=== PATIENT | female | born 1965 | race Caucasian/White ===

== ENCOUNTER → 2018-06-22 08:47 | Day surgery (SDC) | payer BC ==
[~2018-06-22 08:47] MED LIST: Atracurium* 10 MG/ML 10 ML VIAL ONE; Buffered Lidocaine 0.9% SYRIN* 5 ML/SYR SYRINGE INTRADERM ONE; Dexamethasone IV* 4 MG/ML 1 ML (4 MG) IV SLOW PU ONE; Dexamethasone IV* 4 MG/ML 1 ML (4 MG) ONE; DiMENhydriNATE IV* 50 MG/ML VIAL IV PUSH PRN; Famotidine IV* 10 MG/ML 2 ML (20 mg) IV ONE; Famotidine IV* 10 MG/ML 2 ML (20 mg) ONE; Glycopyrrolate IV* 0.2 MG/ML 1 ML VIAL ONE; KETAMINE HCL* 50 MG/ML 10 ML VIAL ONE; Lactated Ringers 1000 ML Bag* 1,000 ML IV SCH; Levalbuterol 0.63MG/3ML NEB* UNIT OF USE INH ONE; Levalbuterol 0.63MG/3ML NEB* UNIT OF USE INH PRN; Lidocaine 2% PF * 5 ML VIAL ONE; Metoprolol Tartrate IV* 1 MG/ML 5 ML VIAL ONE; Midazolam* 1 MG/ML 5 ML VIAL (5 MG) ONE; Naloxone* 0.4 MG/ML 1 ML VIAL IV PRN; Ondansetron ODT TAB* 4 MG ONE; Ondansetron TAB* 4 MG PO ONE; PROCHLORPERAZINE INJ 5 MG/ML 2 ML VIAL IV PRN; PROCHLORPERAZINE INJ 5 MG/ML 2 ML VIAL ONE; Propofol* 10 MG/ML 20 ML BTL ONE; fentaNYL* 50 MCG/ML 2 ML VIAL (100 MCG VIAL) IV PRN; fentaNYL* 50 MCG/ML 2 ML VIAL (100 MCG VIAL) ONE; hydrALAZINE IV* 20 MG/ML VIAL ONE; oxyCODONE/Acetamin 5/325 MG* TAB PO PRN
[2018-06-22 14:49] VITALS: BP 115/73
--- NOTE | 2018-06-22 17:25 | PRO ---
BRONCHOSCOPY REPORT: DATE OF PROCEDURE: 06/22/18 PROCEDURE PERFORMED: Bronchoscopy with endobronchial ultrasound-guided fine- needle aspiration of mediastinal hilar nodes. PREPROCEDURAL DIAGNOSIS: Lung cancer diagnosed after CT-guided biopsy. ANESTHESIA: General anesthesia. ANESTHESIOLOGIST: Dr. Martinez. DESCRIPTION OF PROCEDURE: Informed consent was obtained from the patient prior to the procedure after all the risks and benefits were thoroughly explained. Appropriate time-out was performed and agreed on by attending staff. A flexible Olympus bronchoscope was inserted through ET tube for airway inspection. No endobronchial lesions were noted. Bronchoscope was then withdrawn. EBUS bronchoscope was inserted. Lymph nodes were not significantly enlarged. Left- sided lymph nodes measured 4mm, L4 was accessed with 3 passes. Rapid on-site evaluation revealed no lymphatic tissue. Station 7 sampled with 5 passes. Station R4 was then accessed with one pass. Rapid on-site evaluation revealed no lymphatic tissue. Procedure was terminated. The patient was extubated and seen in Recovery in optimal condition. The patient tolerated the procedure well. [id number]/[facility] #: [id number] [facility]
== END | disposition home or self-care (01) ==
LOC: OR 08:47
PROVIDERS: ATTEND Internal Medicine
DX: C34.90 Malignant neoplasm of unspecified part of unspecified bronchus or lung (principal); I10 Essential (primary) hypertension
CPT/HCPCS: 88172; 88173; 88177; 88305; A9270-GY; J0360; J0780; J1100; J2250; J2704; J3010; J3490

== ENCOUNTER 2019-08-13 08:33 | Emergency (ER) | payer BC ==
[2019-08-13] MEDS ORDERED: Albuterol/Ipratropium NEB.SOL* Albuterol 2.5 MG/Ipratropium 0.5 MG 3 ML INH ONE (09:29)
[2019-08-13] MEDS ORDERED: Acetaminophen TAB* 325 MG PO ONE (09:29)
[2019-08-13] MEDS ORDERED: GuaiFENesin DM sugar free 100mg/10mg 5 ML UDC PO ONE (09:29)
[2019-08-13 09:49] LABS: Influenza A Molecular Negative (Negative); Influenza B Molecular Negative (Negative)
[2019-08-13] MEDS ORDERED: Dexamethasone IV* 4 MG/ML 1 ML (4 MG) IV SLOW PU ONE (10:36)
[2019-08-13] MEDS ORDERED: Azithromycin TAB* 250 MG PO ONE (10:36)
--- NOTE | 2019-08-13 10:44 | ED ---
Respiratory - HPI Summary HPI Summary: This patient is a 54-year-old female with a history of upper right lobe pneumonia and status post lobectomy presenting to the ED with cough, congestion , scratchy throat, fever, wheezing, headache over the past 1 week. She states started with a scratchy throat and now is endorsing mostly chest congestion. She denies any shortness of breath. She has been taking her Symbicort twice daily without much relief. She is also been taking Tylenol and over-the- counter cough medication without relief. She has not been on steroids or nebulizer treatments. Denies any nausea, vomiting, diarrhea. She denies any sick contacts. She states she is mainly homebound and does not go out often. Endorses intermittent sweats and chills, but denies any subjective fevers. - History of Current Complaint Chief Complaint: EDFluSymptoms Stated Complaint: FLU SYMPTOMS PER PT Time Seen by Provider: 08/13/19 09:18 Hx Obtained From: Patient Onset/Duration: Sudden Onset Timing: Constant Initial Severity: Moderate Current Severity: Moderate Pain Intensity: 4 Character: Cough (Productive) Sputum Amount: Scant Sputum Color: White Aggravating Factor(s): URI, Deep Breaths Alleviating Factor(s): Nothing Associated Signs and Symptoms: SOB, URI, Sinus Infection, Nasal Congestion, Sinus Discomfort - Allergy/Home Medications Allergies/Adverse Reactions: Allergies Allergy/AdvReac Type Severity Reaction Status Date / Time No Known Allergies Allergy Verified 08/13/19 08:37 PMH/Surg Hx/FS Hx/Imm Hx Previously Healthy: Yes Endocrine/Hematology History: Denies: Hx Diabetes Cardiovascular History: Reports: Hx Hypertension - ON MEDICATION FOR Denies: Hx Pacemaker/ICD, Other Cardiovascular Problems/Disorders Respiratory History: Reports: Hx Asthma - ROUTINE INHALER AND PRN INHALER, Other Respiratory Problems/Disorders - HX OF LUNG CANCER. HAD RIGHT UPPER LOBECTOMY IN 08/2018. GI History: Reports: Hx Gastroesophageal Reflux Disease - NO MEDICATION FOR Denies: Other GI Disorders History: Reports: Hx Kidney Stones - HX OF Musculoskeletal History: Reports: Hx Arthritis - THROUGHOUT, Hx Tendonitis, Other Musculoskeletal History - GER CARPAL TUNNEL Sensory History: Reports: Hx Contacts or Glasses - INSTRUCTS GIVEN Denies: Hx Hearing Aid Opthamlomology History: Reports: Hx Contacts or Glasses - INSTRUCTS GIVEN Neurological History: Reports: Hx Headaches, Hx Migraine - 1 Q 2-3 MONTHS-TX WITH EXCEDRIN MIGRAINE Denies: Other Neuro Impairments/Disorders Psychiatric History: Reports: Hx Anxiety - NO MEDICATION FOR- STATES RELATED TO CURRENT DIAGNOSIS Denies: Hx Panic Disorder - Cancer History Hx Chemotherapy: No Hx Radiation Therapy: No - Surgical History Surgery Procedure, Year, and Place: C-SECT 1992.,WISDOM TEETH 1984. 2018-LOCAL ANESTHESIA FOR BIOPSY. BRONCHOSCOPY. COLONOSCOPY Hx Anesthesia Reactions: Yes - SLOW TO COME OUT OF ANESTHESIA AFTER BRONCHOSCOPY AND COLONOSCOPY Infectious Disease History: No Infectious Disease History: Denies: Traveled Outside the [place] in Last 30 Days - Social History Occupation: Employed Full-time Lives: With Family Alcohol Use: Rare Hx Substance Use: No Substance Use Type: Reports: None Smoking Status (MU): Never Smoked Tobacco Have You Smoked in the Last Year: No Review of Systems Positive: Fever, Chills, Fatigue Negative: Blurred Vision, Diplopia Positive: Sore Throat, Nasal Discharge. Negative: Ear Ache Negative: Chest Pain Positive: Shortness Of Breath, Cough Negative: Abdominal Pain, Vomiting, Diarrhea, Nausea Negative: Arthralgia, Myalgia Positive: Headache All Other Systems Reviewed And Are Negative: Yes Physical Exam Triage Information Reviewed: Yes Vital Signs On Initial Exam: Initial Vitals Temp Pulse Resp BP Pulse Ox 99.2 F 108 19 135/109 96 08/13/19 08:35 08/13/19 08:35 08/13/19 08:35 08/13/19 08:35 08/13/19 08:35 Vital Signs Reviewed: Yes Appearance: Positive: Ill-Appearing Skin: Positive: Warm, Skin Color Reflects Adequate Perfusion Head/Face: Positive: Normal Head/Face Inspection Eyes: Positive: EOMI, TINY, Conjunctiva Clear ENT: Positive: Nasal congestion. Negative: Nasal drainage, Tonsillar swelling, Tonsillar exudate, Hoarse voice, Dental tenderness, Sinus tenderness Neck: Positive: Supple, Nontender, No Lymphadenopathy Respiratory/Lung Sounds: Positive: Clear to Auscultation, Breath Sounds Present Cardiovascular: Positive: RRR, Pulses are Symmetrical in both Upper and Lower Extremities. Negative: Leg Edema Left, Leg Edema Right Musculoskeletal: Positive: Normal, Strength/ROM Intact Neurological: Positive: Speech Normal Psychiatric: Positive: Affect/Mood Appropriate Procedures - Sedation Patient Received Moderate/Deep Sedation with Procedure: No Diagnostics - Vital Signs Vital Signs Temp Pulse Resp BP Pulse Ox 02/09/20 09:37 16 08/13/19 08:35 99.2 F 108 19 135/109 96 - Laboratory Lab Results: Lab Results 08/13/19 Range/Units 09:21 Influenza A (Rapid) Negative (Negative) Influenza B (Rapid) Negative (Negative) Lab Statement: Any lab studies that have been ordered have been reviewed, and results considered in the medical decision making process. Disposition - Course Course Of Treatment: This patient's evaluated for cough, congestion, and subjective fevers. Patient lungs CTA. RRR. Patient appears ill. Given DUO-NEB without improvement. CXR and flu obtained. Both negative. Pt also given robitussin and tylenol with some improvement. Discussed with patient treatment options. As pt appears is somewhat immunocompromised, pt was offered prophylactic antibiotics d/t severity of symptoms. Azithromycin prescribed. Also given 8mg decadron in the ED. Prescribed tessalon. Dx with bronchitis, but patient is given follow up instructions to the ED. - Differential Dx - Cardiopulmonary Differential Diagnoses - Cardiopulmonary: Other - flu, cold symptoms, viral syndrome, sinusitis - Diagnoses Provider Diagnoses: Bronchitis Discharge ED - Sign-Out/Discharge Documenting (check all that apply): Patient Departure - Discharge Plan Condition: Stable Disposition: HOME Prescriptions: Azithromycin 250 mg PO DAILY #4 tablet Benzonatate CAP* [Tessalon CAP*] 100 mg PO TID #21 cap Patient Education Materials: Acute Bronchitis (ED) Referrals: Rodney Montero MD [Primary Care Provider] - Additional Instructions: Azithromycin 250 mg (1 tab) once daily - START THIS MEDICATION TOMORROW Tessalon 1 tablet up to 3 times daily for cough He may also use [id number] Robitussin or other cough syrup in conjunction with this medication Continue your inhaled steroids Continue with Tylenol and ibuprofen OR nyquil/dayquil for symptoms Return to the ED for worsening symptoms I also recommend nasal saline rinses to open up the airways - Billing Disposition and Condition Condition: STABLE Disposition: Home
[2019-08-13] MEDS ORDERED: Dexamethasone IV* 4 MG/ML 1 ML (4 MG) IM ONE (10:51)
[2019-08-13 11:03] VITALS: BP 134/98
== END 2019-08-13 11:02 | disposition home or self-care (01) ==
LOC: ED 08:33
DX: J45.909 Unspecified asthma, uncomplicated (principal); I10 Essential (primary) hypertension; Z90.2 Acquired absence of lung [part of]; Z85.118 Personal history of other malignant neoplasm of bronchus and lung
CPT/HCPCS: 71046; 99283; A9270-GY; J1100

== ENCOUNTER 2022-03-13 14:45 | Observation (INO) ==
[2022-03-13 16:04] LABS: ABS Basophils 0.1 10^3/ul (0-0.2); ABS Eosinophils 0.1 10^3/ul (0-0.6); ABS Lymphocytes 2.3 10^3/ul (1.0-4.8); ABS Monocytes 1.3 10^3/ul (0-0.8); Eosinophil % 0.4 %; Hematocrit 44 % (35-47); Hemoglobin 15.6 g/dL (12.0-16.0); Lymphocyte % 15.3 %; Mean Corpuscular HGB Conc 35 g/dL (31-36); Mean Corpuscular Hemoglobin 32 pg (27-31); Mean Corpuscular Volume 91 fL (80-97); Platelet Count 346 10^3/uL (150-450); Red Blood Count 4.81 10^6 /uL (3.70-4.87); Red Cell Distribution Width 14 % (10-15); White Blood Count 14.8 10^3/uL (3.5-10.8)
[2022-03-13 16:29] LABS: Urine Appearance Clear; Urine Bilirubin Negative (Negative); Urine Blood 1+ (Small) (Negative); Urine Color Straw; Urine Glucose Negative (Negative); Urine Ketones Negative (Negative); Urine Nitrite Negative (Negative); Urine Protein Negative (Negative); Urine Urobilinogen 0.2 (Negative) (Negative); Urine pH 5.5 (5.0-9.0)
[2022-03-13 16:52] LABS: Urine Bacteria Absent (Absent); Urine Red Blood Cell 1+(3-5/hpf) (Absent); Urine Squamous Epithelial Cell Present (Absent); Urine White Blood Cell Trace(0-5/hpf) (Absent)
[2022-03-13 16:59] LABS: Albumin 4.5 g/dL (3.2-5.2); Albumin/Globulin Ratio 1.6 (1-3); C Reactive Protein 9.48 mg/L (<8.01); Calcium 9.7 mg/dL (8.6-10.3); Globulin 2.8 g/dL (2-4); Potassium 4.4 mmol/L (3.5-5.0); Total Bilirubin 0.3 mg/dL (0.2-1.0); Total Protein 7.3 g/dL (6.4-8.9); eGFR CKD-EPI 98.7 (>60)
[2022-03-13] MEDS ORDERED: Iohexol 350 (CONTRAST) 500 ML MDV IV ONE (17:12)
[2022-03-13] MEDS ORDERED: Morphine 4 MG/ML VIAL (1 ml) IV ONE ×2 (18:24→20:18)
[2022-03-13] MEDS ORDERED: Lactated Ringers 1000 ml BAG 1,000 ML IV ONE (18:25)
[2022-03-13] MEDS ORDERED: Ondansetron 4 mg VIAL 2 MG/ML 2 ml VIAL IV ONE (18:25)
[2022-03-13] MEDS ORDERED: HYDROmorphone 0.5 MG/0.5 ML SYRINGE IV ONE (21:41)
[2022-03-14] MEDS ORDERED: Enoxaparin 40 MG/0.4 ML SYR SUBCUT SCH ×2 (02:00→18:00)
[2022-03-14] MEDS ORDERED: Zosyn per Pharmacy NOTE FOLLOW UP SCH (03:00)
[2022-03-14] MEDS ORDERED: Lactated Ringers 1000 ml BAG 1,000 ML IV SCH (03:00)
[2022-03-14] MEDS ORDERED: ZOSYN 3.375 GM x ONE DOSE over 30 miuntes IV (03:00)
[2022-03-14] MEDS ORDERED: Morphine 2 MG/ML SYRINGE IV PRN (04:13)
[2022-03-14] MEDS ORDERED: [UNRECOGNIZED DRUG - OTHER] PO PRN (04:46)
[2022-03-14] MEDS ORDERED: Albuterol HFA INHALER 8 gm MDI INH PRN (04:46)
[2022-03-14 05:21] LABS: ABS Basophils 0.1 10^3/ul (0-0.2); ABS Lymphocytes 2.3 10^3/ul (1.0-4.8); ABS Monocytes 1.1 10^3/ul (0-0.8); ABS Neutrophils 8.5 10^3/ul (1.5-7.7); Eosinophil % 0.3 %; Hematocrit 38 % (35-47); Hemoglobin 13.2 g/dL (12.0-16.0); Lymphocyte % 19.3 %; Mean Corpuscular HGB Conc 35 g/dL (31-36); Mean Corpuscular Hemoglobin 31 pg (27-31); Mean Corpuscular Volume 91 fL (80-97); Mean Platelet Volume 8.6 fL (7.4-10.4); Platelet Count 317 10^3/uL (150-450); Red Blood Count 4.22 10^6 /uL (3.70-4.87); Red Cell Distribution Width 14 % (10-15); White Blood Count 11.9 10^3/uL (3.5-10.8)
[2022-03-14 06:03] LABS: Calcium 8.8 mg/dL (8.6-10.3); Potassium 4.2 mmol/L (3.5-5.0); eGFR CKD-EPI 102.1 (>60)
[2022-03-14] MEDS ORDERED: Ondansetron 4 mg VIAL 2 MG/ML 2 ml VIAL IV PRN (07:40)
[2022-03-14] MEDS ORDERED: Ondansetron 4 mg VIAL 2 MG/ML 2 ml VIAL ONE (07:55)
[2022-03-14] MEDS: ZOSYN 3.375 GM Q8H per EXTENDED INFUSION IV SCH ×3 (08:03→23:33)
[2022-03-14] MEDS: Heparin 5000 UNITS/ML 1 mL VIAL SUBCUT SCH ×2 (08:19→14:15)
[2022-03-14] MEDS ORDERED: NS 0.9% 1000 ml BAG 1,000 ML IV ONE (09:09)
[2022-03-14] MEDS: NS 0.9% 1000 ml BAG 1,000 ML IV SCH ×2 (09:14→17:44)
[2022-03-14] MEDS ORDERED: HYDROmorphone 1 MG/1 ML SYRINGE IV SLOW PU PRN (10:39)
[2022-03-14] MEDS ORDERED: HYDROmorphone 0.5 MG/0.5 ML SYRINGE IV SLOW PU PRN (10:39)
[2022-03-14] MEDS ORDERED: Mometasone 220 MCG MDI INH SCH (19:00)
[2022-03-15] MEDS: ZOSYN 3.375 GM Q8H per EXTENDED INFUSION IV SCH ×2 (07:32→15:28)
[2022-03-15] MEDS ORDERED: Enoxaparin 40 MG/0.4 ML SYR SUBCUT SCH (09:00)
[2022-03-15 16:04] VITALS: BP 132/83
== END 2022-03-15 17:05 | disposition home or self-care (01) ==
LOC: ED 14:45 → EDHOLD 14:45 → SUATTDRO 03-14 01:45 → SSU 03-14 05:43
PROVIDERS: ADMIT Internal Medicine; ATTEND Family Medicine